=== PATIENT | male | born 1980 | race Caucasian/White ===

== ENCOUNTER 2021-12-17 15:42 | Outpatient (REF) | payer MEDICAID, SELFPAY ==
[2021-12-17 14:50] LABS: Abs Immature Grans 0.05 10^3/uL (0.0-0.06); Absolute Basophil Count 0.03 10^3/uL (0.0-0.2); Absolute Eosinophil Count 0.09 10^3/uL (0.0-0.7); Absolute Lymphocyte Count 2.26 10^3/uL (1.2-3.4); Absolute Monocyte Count 0.62 10^3/uL (0.1-0.8); Absolute Neutrophil Count 3.94 10^3/uL (1.2-6.7); Basophils % 0.4; Eosinophils % 1.3; HCT 45.3 % (40.0-50.0); HGB 15.2 g/dL (13.5-17.5); Immature Grans % 0.7; Lymphocytes % 32.3; MCH 31.8 pg (27.0-33.0); MCHC 33.6 % (32.0-36.0); MCV 94.8 fL (80-95); MPV 9.8 fL (8.0-11.0); Monocytes % 8.9; Neutrophils % 56.4; Nucleated RBC 0 %; Platelet Count 261 10^3/uL (130-400); RBC 4.78 10^6/uL (4.36-5.78); RDW 12.9 % (11.8-14.1); RDW-SD 45.7 fL; WBC 6.99 10^3/uL (4.4-10.8)
[2021-12-17 14:59] LABS: ALT 29 U/L (16-63); AST 19 U/L (15-37); Albumin 4.3 g/dL (3.4-5.0); Alkaline Phosphatase 102 U/L (46-116); Amylase 97 U/L (25-115); BUN 25 mg/dL (7-18); Bilirubin, Total 0.3 mg/dL (0.2-1.0); CREATININE 0.7 mg/dL (0.70-1.30); Calcium 9.2 mg/dL (8.5-10.1); Chloride 102 mmol/L (98-107); Glucose 104 mg/dL (74-106); Lipase 53 U/L (73-393); Potassium 4.6 mmol/L (3.5-5.1); Sodium 138 mmol/L (136-145); Total Protein 7.6 g/dL (6.4-8.2)
[2021-12-17 16:09] LABS: Bilirubin Negative (Negative); Blood Negative (Negative); Clarity Clear (Clear); Glucose Negative (Negative); Ketones Negative (Negative); Leukocyte Esterase Negative (Negative); Nitrite Negative (Negative); Specific Gravity >= 1.030 (1.005-1.025); Urobilinogen 0.2 EU/dL (Up TO 0.2); pH 5.5 (5-8)
== END 2021-12-17 15:43 | disposition home or self-care (01) ==
LOC: NCHCN 15:42
PROVIDERS: Visit Provider Nurse Practitioner Family
DX: R10.32 Left lower quadrant pain (principal); R82.998 Other abnormal findings in urine
CPT/HCPCS: 80053; 83690; 81003; 82150; 85025

== ENCOUNTER 2021-12-17 16:08 | Outpatient (CLI) | payer MEDICAID, SELFPAY ==
--- NOTE | 2021-12-17 | DI.CT_ITS ---
Exam(s) CT ABDOMEN PELVIS W EXAM: CT ABDOMEN PELVIS W CLINICAL HISTORY: LT FLANK PAIN, R10.9, ABD PAIN LT LOWER QUAD, R10.32. TECHNIQUE: Imaging Protocol: Axial computed tomography images with coronal and sagittal reformatted images were created and reviewed CONTRAST MATERIAL: Intravenous: Omnipaque 99cc Oral: Yes COMPARISON: No exams were available for comparison FINDINGS: VISUALIZED LUNG BASES: No nodules nor pleural effusions evident. ABDOMEN: There is no ascites. LIVER: There are no focal hepatic lesions evident . GALLBLADDER/BILIARY: No obvious gallbladder pathology. CBD is not dilated. PANCREAS: No evidence of pancreatic mass nor dilatation of the pancreatic duct. SPLEEN: Spleen is not enlarged. No obvious intrasplenic lesions. Splenic and portal veins are paten t. ADRENALS: There are no significant adrenal masses. KIDNEYS:There is a small cyst in the superior pole the right kidney measuring 8 x 7 millimeters. No other significant focal findings in the right kidney. There is a benign 4 millimeter cyst in the inf erior pole the left kidney. No other focal findings in the left kidney. No hydronephrosis. There a re extrarenal pelves bilaterally. There is no evidence of calculi at the ureterovesical junctions-di stal ureters nor within the urinary bladder. Bladder wall appears uniformly thickened (4 millimeters ). No calculi seen within the bladder.. ABDOMINAL AORTA: Abdominal aorta is not enlarged. LYMPH NODES:There is no retroperitoneal nor paraaortic adenopathy. ABDOMINAL WALL: No evidence of significant anterior abdominal wall nor inguinal hernia. GI: There is no evidence of bowel obstruction, free air, nor abscess. PELVIS: GI: No evidence of appendicitis.Somewhat redundant sigmoid but without evidence of diverticulitis. LYMPH NODES: There is no intrapelvic nor inguinal adenopathy. REPRODUCTIVE: Prostate size upper normal. URINARY BLADDER: Thickened wall OSSEOUS: No significant osseous lesions. IMPRESSION: 1. There are tiny cysts in both kidneys. No solid renal masses. No calculi. Extrarenal pelves are noted bilaterally but no true hydronephrosis. No calculi in the urinary bladder. 2. Bladder wall appears to be uniformly thickened to measurement of 4 millimeters, possibly related t o chronic cystitis. There are no bladder diverticuli. No calculus seen in the urinary bladder. 3. Redundant sigmoid colon. No evidence of diverticulitis. 4. No evidence of appendicitis. RADIATION DOSE DELIVERED: 927.95mGy.cm Total DLP DATA REPOSITORY: All CT scans at this facility are submitted to the National Radiology Data Registry (NRDR) Dose Index Registry (DIR) with the [employer] (ACR). RADIATION OPTIMIZATION: All CT scans at this facility use at least one of these dose optimization te chniques: automated exposure control; mA and/or kV adjustment per patient size (includes targeted exa ms where dose is matched to clinical indication); or iterative reconstruction.
[2021-12-17] MEDS: Breeza Beverage 473 ML BTL 946 ML PO (14:37)
[2021-12-17] MEDS: Normal Saline Flush 10 ML SYR IVP (14:38)
[2021-12-17] MEDS: Omnipaque 350 MG/ML 100 ML BTL IJ (14:40)
== END 2021-12-17 16:28 ==
PROVIDERS: Visit Provider Nurse Practitioner Family
DX: R10.32 Left lower quadrant pain (principal); N28.1 Cyst of kidney, acquired; N32.89 Other specified disorders of bladder
CPT/HCPCS: 74177; J3490

== ENCOUNTER 2021-12-31 07:04 | Emergency (ER) | payer MEDICAID, SELFPAY ==
[2021-12-31] VITALS (11 sets, daily range): BP systolic 111–146; BP diastolic 66–89; PULSE 78–95; RESP 12–17; TEMP 36.6; O2SAT 98–100
--- NOTE | 2021-12-31 07:00 | RT.EKG_ITS ---
APPROVED REPORT Exam: Resting ECG Reason for Exam: chest pain Patient Location: E HR:84 bpm ECG Measurements Heart Rate 84 AXIS WA 178 P 18 QRSd 97 QRS 139 QT 372 T 32 QTc 441 Conclusion Sinus rhythm...normal P axis, V-rate 60- 99 ST elev, probable normal early repol pattern...ST elevation, age<55l. Sinus. Likely benign early repolarization. No STEMI. I have reviewed and interpreted ECG and agree with software generated interpretation.
--- NOTE | 2021-12-31 07:04 | ED.GENADUL_ITS ---
Discharge Plan Disposition Patient Disposition: STILL A PATIENT Condition: Stable Discharge Details Clinical Impression: Epigastric abdominal pain, Chest pain Primary Care Provider: Unknown,Unknown ED Provider: Mattie rOourke Home Meds and New Rx's Prescriptions: No Action diphenhydramine HCl [Benadryl] 25 mg Capsule 50 mg PO QHS [id number] Medical Decision Making 0720 -- 41-year-old male with a history of daily alcohol abuse presents from home for substernal chest pain. Records note the patient was seen at [facility] recently for abdominal pain and referred for outpatient CT abdomen and pelvis which was negative for acute findings. He states this lower abdominal pain has since resolved. Assessment of patient at bedside notes that the pain today appears in the epigastric region. EKG notes a rate of 84, sinus with what appears to be likely benign early repolarization in V2 and V3. No STEMI. He is tender to palpation in the epigastrium. He has no tenderness palpation to his chest. There appears to be a spasm-like quality to his pain as he is moaning and yelling intermittently in the room. Suspect gastritis vs GERD vs PUD, also consider esophageal spasm, cholecystitis, biliary colic, pancreatitis. Denies any tearing or ripping sensation so dissection appears unlikely. There is no pleuritic component does not appear consistent with PE. There is no report of vomiting or his appears on the will obtain screening labs, portable chest x-ray and give IV Pepcid, IV Zofran, GI cocktail and Carafate and reassess. 0800 -- case endorsed to Dr. Trevino to follow up on labs and final disposition. Medical Records Medical records reviewed: Yes I reviewed the patient's medical records. Medical records narrative: 12/17/21 -- CT abdomen/pelvis w/ IV contrast: IMPRESSION: 1. There are tiny cysts in both kidneys.? No solid renal masses.? No calculi.? Extrarenal pelves are noted bilaterally but no true hydronephrosis.? No calculi in the urinary bladder. 2. Bladder wall appears to be uniformly thickened to measurement of 4 millimeters, possibly related to chronic cystitis.? There are no bladder diverticuli.? No calculus seen in the urinary bladder. 3. Redundant sigmoid colon.? No evidence of diverticulitis. 4. No evidence of appendicitis. ECG Data Attestation: I personally reviewed and interpreted this ECG (s) as follows: Interpretation: Rate of 84, sinus, benign early epolarization in V2 and V3. No STEMI. HPI General Mode of arrival: EMS . Date/Time Provider Initiated Documentation: 12/31/21 07:39 . Limitations to Documentation: no limitations . Information obtained by: patient . HPI Narrative: Patient is a 41-year-old tobacco smoker male with a history of daily alcohol a buse presents from home for substernal chest pain. EMS reports that patient was seen recently for abdominal pain but patient reported that the pain has now migrated from his abdomen up to his chest. He was given 324 of aspirin and 0.4mg SL nitro. Patient states he has had chest pain since last night. He states the pain is worse with movement but also at random at rest. Upon further questioning, it appears his pain is mainly in his epigastrium. He drank a half bottle of wine this morning. He states he usually drinks 2 L of wine daily which she has been doing for several years. He occasionally smokes marijuana but denies any other drug use. He states he was seen at [facility] earlier this month for lower abdominal pain but was told his labs and imaging were reassuring and states his lower abdominal pain is since resolved. Related Data Home Medications Medication Instructions Recorded Confirmed diphenhydramine HCl 25 mg capsule 50 mg PO QHS PRN 12/31/21 12/31/21 (Benadryl) Allergies Allergy/AdvReac Type Severity Reaction Status Date / Time No Known Allergies Allergy Unverified 12/31/21 07:10 General Stated Complaint: Chest Pain BONNIE: 3 Review of Systems All systems reviewed & are unremarkable except as noted in HPI and below Constitutional Constitutional: Reports as per HPI, Denies chills and Denies fever(s) Eyes Eyes: Denies blurry vision ENT Ears, Nose, Mouth, and Throat: Denies dizziness, Denies sore throat and Denies throat swelling Cardiovascular Cardiovascular: Reports chest pain and Denies dyspnea Respiratory Respiratory: Denies cough and Denies dyspnea Gastrointestinal Gastrointestinal: Reports abdominal pain, Denies diarrhea and Denies vomiting Genitourinary Genitourinary: Denies hematuria and Denies dysuria Musculoskeletal Musculoskeletal: Denies back pain and Denies numbness Integumentary/Breasts Skin/Breast: Denies lesions and Denies rash Neurologic Neurologic: Denies dizziness, Denies localized weakness and Denies numbness Allergic/Immunologic Allergic/Immunologic: Denies throat swelling PFSH All Active Problems (Updated 12/31/21 @ 07:40 by Mattie Orourke DO) Epigastric abdominal pain (Acute) Chest pain (Acute) Medical History Alcohol abuse Surgical History (Updated 12/31/21 @ 07:40 by Mattie Orourke DO) History of tonsillectomy Social History Smoking/Tobacco Use Status: Current every day Tobacco Type: cigarettes Smoking risk assessment performed?: Yes Alcohol Intake: current Alcohol type: wine Drug use: Never Substance use type: does not use Do you feel safe at home: Yes Do you feel safe in your relationship?: Yes Additional Social history: homeless living at [facility] Exam Const General: cooperative, no acute distress and other (moaning, clutching his abdomen) Orientation: alert, awake and oriented x3 HENMT Head: normal to inspection Mouth: oral mucosae normal Eyes General: appearance normal, both eyes and all related structures Neck Neck: normal visual inspection Resp Effort & Inspection: normal respiratory effort and able to speak in complete sentences Auscultation: clear to auscultation bilaterally Cardio Rate: regular rate Rhythm: regular rhythm GI Inspection: normal to inspection Palpation: soft, not firm, no guarding, not rigid and nontender Skin General skin exam: no rashes or lesions noted Neuro General: patient alert, patient awake and patient oriented x3 Motor: muscle tone normal throughout Extrem General: normal to inspection, full ROM and no edema Psych Appearance: grossly normal Affect: normal affect Sign Out Sign Out Data: Sign Out Comment: Epigastric and chest pain since last night. History of daily alcohol abuse. EKG notes most likely benign early repolarization. Follow-up on labs and imaging and final disposition. Plan will be for delta troponin. Last updated by Mattie Orourke DO at 12/31/21 08:00
--- NOTE | 2021-12-31 07:15 | DI.RAD_ITS ---
Exam(s) XR PORTABLE CHEST AP EXAM: XR PORTABLE CHEST AP CLINICAL HISTORY: substernal chest/epigastric pain, r/o acute diseas TECHNIQUE: 2D digital imaging was performed. COMPARISON: No exams were available for comparison FINDINGS: LUNGS: Clear. No pleural abnormality seen. HEART: Normal. MEDIASTINUM: Normal. BONES: Unremarkable. IMPRESSION: No acute pulmonary findings. DATA REPOSITORY: RADIATION DOSE DELIVERED:
[2021-12-31] MEDS: Ondansetron 4 MG/2 ML VIAL IVP (07:48)
[2021-12-31] MEDS: Famotidine 20 MG/2 ML VIAL IVP (07:48)
[2021-12-31] MEDS: Sucralfate 1 GM TAB PO (07:49)
[2021-12-31] MEDS: Normal Saline 1,000 ML 1000 ML IV (07:53)
[2021-12-31 08:51] LABS: Abs Immature Grans 0.11 10^3/uL (0.0-0.06); Absolute Eosinophil Count 0.03 10^3/uL (0.0-0.7); Absolute Lymphocyte Count 3.33 10^3/uL (1.2-3.4); Absolute Monocyte Count 0.75 10^3/uL (0.1-0.8); Basophils % 0.3; Eosinophils % 0.2; HCT 46.4 % (40.0-50.0); HGB 15.1 g/dL (13.5-17.5); Immature Grans % 0.8; Lymphocytes % 23.2; MCH 31.2 pg (27.0-33.0); MCHC 32.5 % (32.0-36.0); MCV 95.9 fL (80-95); MPV 8.7 fL (8.0-11.0); Monocytes % 5.2; Neutrophils % 70.3; Nucleated RBC 0 %; Platelet Count 329 10^3/uL (130-400); RBC 4.84 10^6/uL (4.36-5.78); RDW 13.4 % (11.8-14.1); RDW-SD 47.6 fL; WBC 14.34 10^3/uL (4.4-10.8)
[2021-12-31 08:54] LABS: Absolute Basophil Count 0.04 10^3/uL (0.0-0.2); Absolute Neutrophil Count 10.08 10^3/uL (1.2-6.7)
[2021-12-31 09:08] LABS: ALT 35 U/L (16-63); AST 28 U/L (15-37); Albumin 4.4 g/dL (3.4-5.0); Alkaline Phosphatase 63 U/L (46-116); BUN 14 mg/dL (7-18); Bilirubin, Total 0.3 mg/dL (0.2-1.0); CREATININE 0.7 mg/dL (0.70-1.30); Calcium 8.8 mg/dL (8.5-10.1); Chloride 105 mmol/L (98-107); Glucose 92 mg/dL (74-106); Lipase 35 U/L (73-393); Magnesium 2.3 mg/dL (1.8-2.4); Sodium 142 mmol/L (136-145); Troponin I < 50 ng/L (<or=60)
--- NOTE | 2021-12-31 10:54 | W.ED.GENAD ---
Discharge Plan Disposition Patient Disposition: HOME Condition: Improving Discharge Details Clinical Impression: Epigastric abdominal pain, Chest pain Primary Care Provider: Unknown,Unknown ED Provider: Ba Rodríguez Home Meds and New Rx's Prescriptions: No Action diphenhydramine HCl [Benadryl] 25 mg Capsule 50 mg PO QHS PRN0RF Discharge Instructions Instructions: Gastritis (ED) Additional Instructions: Please follow-up with primary care as scheduled. Return to the emergency department for any worsening symptomatology specifically worsening chest pain abdominal pain nausea vomiting or signs of withdrawal. Medical Decision Making 41-year-old male presents with recurrent epigastric and chest discomfort that began last night into this morning. No respiratory stress no cough afebrile nontoxic. No peripheral edema. Abdomen soft nontender nondistended. Consider gastritis versus GERD versus pancreatitis given history of alcohol use versus less likely cholecystitis appendicitis or serious intra-abdominal infection or obstruction. Screening labs to troponin EKG GI cocktail close reassessment. Patient already feeling better after meds and rest, no chest pain currently for troponin negative. Awaiting second set of blood work. Likely follow-up with primary care Resting comfortably labs unremarkable feeling better after fluids and meds. HPI General Date/Time Provider Initiated Documentation: 12/31/21 07:39. HPI Narrative: 41-year-old male history of epigastric and chest pain presents with epigastric discomfort and chest discomfort that started last night into this evening, denies trouble breathing cough fevers chills nausea vomiting. Related Data Home Medications Medication Instructions Recorded Confirmed diphenhydramine HCl 25 mg capsule 50 mg PO QHS PRN 12/31/21 12/31/21 (Benadryl) Allergies Allergy/AdvReac Type Severity Reaction Status Date / Time No Known Allergies Allergy Unverified 12/31/21 07:10 General Stated Complaint: Chest Pain BONNIE: 3 Review of Systems Narrative: Review of Systems Constitutional: negative Eyes: negative ENT: negative Cardiovascular: Chest pain Respiratory: negative Gastrointestinal: Abdominal pain : negative Musculoskeletal: negative Skin: negative Neurologic: negative Psych: negative PFSH All Active Problems (Updated 12/31/21 @ 07:40 by Mattie Orourke DO) Epigastric abdominal pain (Acute) Chest pain (Acute) Medical History Alcohol abuse Surgical History (Updated 12/31/21 @ 07:40 by Mattie Orourke DO) History of tonsillectomy Social History Smoking/Tobacco Use Status: Current every day Tobacco Type: cigarettes Smoking risk assessment performed?: Yes Alcohol Intake: current Alcohol type: wine Drug use: Never Substance use type: does not use Do you feel safe at home: Yes Do you feel safe in your relationship?: Yes Additional Social history: homeless living at [facility] Exam Narrative Exam Narrative: Physical Examination General: alert, awake, cooperative, resting comfortably, no acute distress HEENT: normocephalic, atraumatic; PERRL, EOM intact, conjunctiva normal; no nasal discharge; moist mucous membranes, oral and pharyngeal mucosa normal, tolerating secretions Neck: supple, trachea midline; full ROM Chest: normal to inspection Respiratory: normal respiratory effort, speaking in full sentences, clear to auscultation, no wheezing, rales or rhonchi Cardiac: regular rate, regular rhythm, S1S2 intact, no murmurs rubs or gallops GI: abdomen soft, non-tender, non-distended; no palpable mass or hepatosplenomegaly Skin: no lesions, rashes or trauma appreciated Neuro: AAOx3, normal speech, moving all extremities Extremities: No peripheral edema Psych: Appropriate mood and affect Course Vital Signs Vital signs: Vital Signs Pulse 95 H 12/31/21 07:06 Respiratory Rate 16 12/31/21 07:06 Blood Pressure 119/75 12/31/21 07:06 Pulse Oximetry 99 12/31/21 07:06 Pulse 90 12/31/21 09:30 Pulse 95 H 12/31/21 09:30 Respiratory Rate 14 12/31/21 09:30 Respiratory Effort 12/31/21 07:56 Respiratory Depth Normal 12/31/21 07:56 Blood Pressure 124/68 12/31/21 09:30 Blood Pressure Mean 78 12/31/21 09:30 Blood Pressure Position Sitting 12/31/21 07:06 Pulse Oximetry 98 12/31/21 08:45 Oxygen Delivery Method Room Air 12/31/21 07:06 Oxygen Flow Rate 0 12/31/21 07:06 Lab/Test Results Lab/Test Results: Laboratory Tests Range/Units 12/31/21 12/31/21 08:38 08:38 WBC (4.4-10.8) 10^3/uL 14.34 H RBC (4.36-5.78) 10^6/uL 4.84 Hgb (13.5-17.5) g/dL 15.1 Hct (40.0-50.0) % 46.4 MCV (80-95) fL 95.9 H MCH (27.0-33.0) pg 31.2 MCHC (32.0-36.0) % 32.5 RDW (11.8-14.1) % 13.4 Plt Count (130-400) 10^3/uL 329 MPV (8.0-11.0) fL 8.7 Immature Gran % 0.8 Neutrophils % 70.3 Lymphocytes % 23.2 Monocytes % 5.2 Eosinophils % 0.2 Basophils % 0.3 Nucleated RBC % % 0 Absolute Neutrophils (1.2-6.7) 10^3/uL 10.08 H Absolute Lymphocytes (1.2-3.4) 10^3/uL 3.33 Absolute Monocytes (0.1-0.8) 10^3/uL 0.75 Absolute Eosinophils (0.0-0.7) 10^3/uL 0.03 Absolute Basophils (0.0-0.2) 10^3/uL 0.04 Sodium (136-145) mmol/L 142 Potassium (3.5-5.1) mmol/L 4.0 Chloride (98-107) mmol/L 105 Carbon Dioxide (21.0-32.0) mmol/L 25.0 Anion Gap (3-11) mmol/L 12.0 H BUN (7-18) mg/dL 14 Creatinine (0.70-1.30) mg/dL 0.7 Estimated GFR/1.73 m2 (mL/min/1.73m2) >= 60.00 Glucose (74-106) mg/dL 92 Calcium (8.5-10.1) mg/dL 8.8 Magnesium (1.8-2.4) mg/dL 2.3 Total Bilirubin (0.2-1.0) mg/dL 0.3 AST (15-37) U/L 28 ALT (16-63) U/L 35 Alkaline Phosphatase (46-116) U/L 63 Troponin I (<or=60) ng/L < 50 Total Protein (6.4-8.2) g/dL 8.0 Albumin (3.4-5.0) g/dL 4.4 Lipase (73-393) U/L 35 Sign Out Sign Out Data: Sign Out Comment: Epigastric and chest pain since last night. History of daily alcohol abuse. EKG notes most likely benign early repolarization. Follow-up on labs and imaging and final disposition. Plan will be for delta troponin. Last updated by Mattie Orourke DO at 12/31/21 08:00
[2021-12-31 11:04] LABS: Troponin I < 50 ng/L (<or=60)
--- NOTE | 2021-12-31 11:15 | NUR.NOTE ---
Nursing Note: Referral given to Care Management for gastritis, alcoholism, establish care/needs PCP within 1 week. Kasie Gustafson
== END 2021-12-31 11:40 | disposition home or self-care (01) ==
PROVIDERS: Physician Assistant; Emergency Provider Emergency Medicine; PCP Nurse Practitioner Family
DX: R10.13 Epigastric pain (principal); R07.9 Chest pain, unspecified; F17.210 Nicotine dependence, cigarettes, uncomplicated; F10.10 Alcohol abuse, uncomplicated
CPT/HCPCS: 80053; 83690; 93005; 96361; 96374; 96375; 99284; 71045; 83735; 84484; 85025; 93010; J2405

== ENCOUNTER → 2022-01-07 01:49 | Outpatient (CLI) | payer MEDICAID, SELFPAY ==
--- NOTE | 2022-01-07 12:30 | DI.RAD_ITS ---
Exam(s) XR RIBS ONLY RT EXAM: XR RIBS ONLY RT CLINICAL HISTORY: RUQ ABD PAIN, R10.11, TENDER ANTERIOR CHEST WALL NEAR RUQ, BRUISE TECHNIQUE: 2D digital imaging was performed.Four images were obtained. COMPARISON: CR XR PORTABLE CHEST AP from 12/31/2021 FINDINGS: MEDIASTINUM: Normal. HEART: Normal. PULMONARY VASCULATURE: Normal. LUNGS: Clear. PLEURAL SPACE: No pleural effusion or pneumothorax. BONE:Normal. RIGHT RIBS: Normal. OTHER FINDINGS:Normal. IMPRESSION: 1. No acute pulmonary findings. 2. Unremarkable right ribs. DATA REPOSITORY: RADIATION DOSE DELIVERED:
--- NOTE | 2022-01-16 10:59 | W.ED.GENAD ---
Discharge Plan Discharge Details Attending Provider: Tripp Rodriguez Primary Care Provider: RUFUS CHOUDHARY Home Meds and New Rx's Prescriptions: No Action diphenhydramine HCl [Benadryl] 25 mg Capsule 50 mg PO QHS [id number] Medical Decision Making This entire ED visit note was copied and pasted from the original note which is locked in draft mode. ED visit date: 12/31/21 Discharge Plan Disposition Patient Disposition: STILL A PATIENT Condition: Stable Discharge Details Clinical Impression: ?Epigastric abdominal pain, Chest pain Primary Care Provider: Unknown,Unknown ED Provider: Mattie Orourke Home Meds and New Rx's Prescriptions: No Action ? diphenhydramine HCl [Benadryl] 25 mg Capsule ?? 50 mg PO QHS [id number] Medical Decision Making 07 -- 41-year-old male with a history of daily alcohol abuse presents from home for substernal chest pain.? Records note the patient was seen at [facility] recently for abdominal pain and referred for outpatient CT abdomen and pelvis which was negative for acute findings.? He states this lower abdominal pain has since resolved.? Assessment of patient at bedside notes that the pain today appears in the epigastric region. EKG notes a rate of 84, sinus with what appears to be likely benign early repolarization in V2 and V3.? No STEMI. He is tender to palpation in the epigastrium.? He has no tenderness palpation to his chest.? There appears to be a spasm-like quality to his pain as he is moaning and yelling intermittently in the room.? Suspect gastritis vs GERD vs PUD, also consider esophageal spasm, cholecystitis, biliary colic, pancreatitis.? Denies any tearing or ripping sensation so dissection appears unlikely.? There is no pleuritic component does not appear consistent with PE.? There is no report of vomiting or his appears on the will obtain screening labs, portable chest x-ray and give IV Pepcid, IV Zofran, GI cocktail and Carafate and reassess. 0800 -- case endorsed to Dr. Trevino to follow up on labs and final disposition. Medical Records Medical records reviewed: Yes I reviewed the patient's medical records. Medical records narrative: 12/17/21 -- CT abdomen/pelvis w/ IV contrast: IMPRESSION: 1. There are tiny cysts in both kidneys.? No solid renal masses.? No calculi.? Extrarenal pelves are noted bilaterally but no true hydronephrosis.? No calculi in the urinary bladder. 2. Bladder wall appears to be uniformly thickened to measurement of 4 millimeters, possibly related to chronic cystitis.? There are no bladder diverticuli.? No calculus seen in the urinary bladder. 3. Redundant sigmoid colon.? No evidence of diverticulitis. 4. No evidence of appendicitis. ECG Data Attestation: I personally reviewed and interpreted this ECG (s) as follows: Interpretation: Rate of 84, sinus, benign early epolarization in V2 and V3.? No STEMI. HPI General? Mode of arrival: EMS.? Date/Time Provider Initiated Documentation: 12/31/21 07:39.? Limitations to Documentation: no limitations. ? Information obtained by: patient. HPI Narrative: Patient is a 41-year-old tobacco smoker male with a history of daily alcohol abuse presents from home for substernal chest pain.? EMS reports that patient was seen recently for abdominal pain but patient reported that the pain has now migrated from his abdomen up to his chest.? He was given 324 of aspirin and 0.4mg SL nitro.? Patient states he has had chest pain since last night.? He states the pain is worse with movement but also at random at rest.? Upon further questioning, it appears his pain is mainly in his epigastrium.? He drank a half bottle of wine this morning.? He states he usually drinks 2 L of wine daily which she has been doing for several years.? He occasionally smokes marijuana but denies any other drug use.? He states he was seen at [facility] earlier this month for lower abdominal pain but was told his labs and imaging were reassuring and states his lower abdominal pain is since resolved.?Related Data? Home Medications ?Medication ?Instructions ?Recorded ?Confirmed diphenhydramine HCl 25 mg capsule 50 mg PO QHS PRN 12/31/21 12/31/21 (Benadryl) ? Allergies Allergy/AdvReac Type Severity Reaction Status Date / Time No Known Allergies Allergy ? ? Unverified 12/31/21 07:10 ?General?Stated Complaint: Chest Pain?BONNIE: 3? Review of Systems All systems reviewed & are unremarkable except as noted in HPI and below Constitutional Constitutional: Reports as per HPI, Denies chills and Denies fever(s) Eyes Eyes: Denies blurry vision ENT Ears, Nose, Mouth, and Throat: Denies dizziness, Denies sore throat and Denies throat swelling Cardiovascular Cardiovascular: Reports chest pain and Denies dyspnea Respiratory Respiratory: Denies cough and Denies dyspnea Gastrointestinal Gastrointestinal: Reports abdominal pain, Denies diarrhea and Denies vomiting Genitourinary Genitourinary: Denies hematuria and Denies dysuria Musculoskeletal Musculoskeletal: Denies back pain and Denies numbness Integumentary/Breasts Skin/Breast: Denies lesions and Denies rash Neurologic Neurologic: Denies dizziness, Denies localized weakness and Denies numbness Allergic/Immunologic Allergic/Immunologic: Denies throat swelling PFSH All Active Problems?(Updated 12/31/21 @ 07:40 by Mattie Orourke DO) Epigastric abdominal pain (Acute) Chest pain (Acute) Medical History Alcohol abuse Surgical History?(Updated 12/31/21 @ 07:40 by Mattie Orourke DO) History of tonsillectomy Social History Smoking/Tobacco Use Status:? Current every day Tobacco Type: cigarettes Smoking risk assessment performed?:? Yes Alcohol Intake:? current Alcohol type: wine Drug use:? Never Substance use type:? does not use Do you feel safe at home:? Yes Do you feel safe in your relationship?:? Yes Additional Social history:? homeless living at [facility] Exam Const General: cooperative, no acute distress and other (moaning, clutching his abdomen) Orientation: alert, awake and oriented x3 HENMT Head: normal to inspection Mouth: oral mucosae normal Eyes General: appearance normal, both eyes and all related structures Neck Neck: normal visual inspection Resp Effort & Inspection: normal respiratory effort and able to speak in complete sentences Auscultation: clear to auscultation bilaterally Cardio Rate: regular rate Rhythm: regular rhythm GI Inspection: normal to inspection Palpation: soft, not firm, no guarding, not rigid and nontender Skin General skin exam: no rashes or lesions noted Neuro General: patient alert, patient awake and patient oriented x3 Motor: muscle tone normal throughout Extrem General: normal to inspection, full ROM and no edema Psych Appearance: grossly normal Affect: normal affect Sign Out Sign Out Data: Sign Out Comment: Epigastric and chest pain since last night.? History of daily alcohol abuse.? EKG notes most likely benign early repolarization.? Follow-up on labs and imaging and final disposition.? Plan will be for delta troponin. Last updated by Mattie Orourke DO at 12/31/21 08:00 HPI Related Data Home Medications Medication Instructions Recorded Confirmed diphenhydramine HCl 25 mg capsule 50 mg PO QHS PRN 12/31/21 12/31/21 (Benadryl) Allergies Allergy/AdvReac Type Severity Reaction Status Date / Time No Known Allergies Allergy Unverified 12/31/21 07:10 General BONNIE: 3 PFSH All Active Problems (Updated 12/31/21 @ 07:40 by Mattie Orourke DO) Epigastric abdominal pain (Acute) Chest pain (Acute) Medical History Alcohol abuse Surgical History (Updated 12/31/21 @ 07:40 by Mattie Orourke DO) History of tonsillectomy Social History Smoking/Tobacco Use Status: Current every day Tobacco Type: cigarettes Smoking risk assessment performed?: Yes Alcohol Intake: current Alcohol type: wine Drug use: Never Substance use type: does not use Do you feel safe at home: Yes Do you feel safe in your relationship?: Yes Additional Social history: homeless living at [facility]
== END ==
PROVIDERS: PCP Nurse Practitioner Family; Visit Provider Family Medicine
DX: R07.89 Other chest pain (principal); S20.211A Contusion of right front wall of thorax, initial encounter; R10.11 Right upper quadrant pain
CPT/HCPCS: 71100

== ENCOUNTER 2022-01-20 20:35 | Emergency (ER) | payer MEDICAID, SELFPAY ==
[2022-01-20 20:26] VITALS: BP 138/95; PULSE 104; RESP 18; TEMP 36.4; O2SAT 97
--- NOTE | 2022-01-20 20:44 | ED.GENADUL_ITS ---
Discharge Plan Discharge Details Chief Complaint: ETOHWithdr Primary Care Provider: RUFUS CHOUDHARY ED Provider: Chandni Sommer Home Meds and New Rx's Prescriptions: No Action diphenhydramine HCl [Benadryl] 25 mg Capsule 50 mg PO QHS [id number] Medical Decision Making 41-year-old male who is ambulatory here in department presents with yelling and lower abdominal pain on exam. He has a history of EtOH abuse. When asked patient denies pain no chest pain or shortness of breath denies any trauma. He does answer questions appropriately. He has been recently seen here on December 31 and January 16 for similar. At that time he was complaining of chest and abdominal effort. Cardiac etiology was ruled out at that time. He was noted to have bladder thickening question of chronic cystitis. Past medical history includes alcohol abuse. At this time screening labs ordered including CBC, CMP, alcohol level, Tylenol salicylate, urinalysis and UDS 1 L normal saline GI cocktail and 0.5 mg of lorazepam p.o. Wiill medically clear patient. 2141: Informed by staff mechanical engineer department staff that patient eloped from the department after taking out his IV, he did receive GI cocktail and 0.5 mg lorazepam. Patient was seen ambulatory without assistance upon elopement from the department. CBC has resulted no leukocytosis no significant evidence for infection CMP still pending at this time urinalysis within normal limits. Urine drug screen and alcohol level pending at the time of this dictation. HPI General Mode of arrival: EMS . Date/Time Provider Initiated Documentation: 01/20/22 20:38 . Limitations to Documentation: altered mental status (Intoxicated) . Information obtained by: patient, EMS, RN notes reviewed and old records reviewed . HPI Narrative: 41-year-old male who is ambulatory here in department presents with yelling and lower abdominal pain on exam. He has a history of EtOH abuse. When asked patient denies pain no chest pain or shortness of breath denies any trauma. He does answer questions appropriately. He has been recently seen here on December 31 and January 16 for similar. At that time he was complaining of chest and abdominal effort. Cardiac etiology was ruled out at that time. He was noted to have bladder thickening question of chronic cystitis. Past medical history includes alcohol abuse. Related Data Home Medications Medication Instructions Recorded Confirmed diphenhydramine HCl 25 mg capsule 50 mg PO QHS PRN 12/31/21 12/31/21 (Benadryl) Allergies Allergy/AdvReac Type Severity Reaction Status Date / Time No Known Allergies Allergy Unverified 12/31/21 07:10 General Stated Complaint: ETOHWithdr BONNIE: 3 Review of Systems Narrative: Limited due to intoxication Cardiovascular Cardiovascular: Denies chest pain and Denies dyspnea Respiratory Respiratory: Denies dyspnea PFSH All Active Problems Epigastric abdominal pain (Acute) Chest pain (Acute) Medical History Alcohol abuse Surgical History History of tonsillectomy Social History Smoking/Tobacco Use Status: Current every day Tobacco Type: cigarettes Smoking risk assessment performed?: Yes Alcohol Intake: current Alcohol type: wine Drug use: Occasionally Substance use type: marijuana Details: currently does not have a dealer Do you feel safe at home: Yes Do you feel safe in your relationship?: Yes Additional Social history: homeless living at [facility] Exam Narrative Exam Narrative: General: Disheveled awake and Alert, conversant. Stops moaning when spoken to intermittently. Slurred speech, smells of EtOH. Skin: Warm and Dry HEENT: Head: No palpable deformities, Normocephalic Eyes: Pupils PERRLA, EOM's intact. No periorbital eccymosis or step off Ears: Canal patent. Tympanic membranes are clear . No okeefe's sign, no hemptympanum. Nose/Face: Atraumatic. Facial bones nontender to palpation and stable with manipulation. Mouth/Throat: No intraoral trauma. Teeth and mandible are intact. Neck: No midline tenderness, no step off, no deformity to palpation of C-spine. Trachea midline. Chest: No surface trauma. Nontender without crepitus or deformity. Lungs clear to ausculatation bilaterally. Heart: RRR, no rubs, murmurs or gallop. Abdomen: No abrasions, ecchymosis, or surface trauma. Nondistended. Mild tenderness noted to bilateral lower abdomen. Pelvis: Nontender to palpation and stable to compression. Femoral pulses strong and equal Extremities: no surface trauma. Sensation intact. Peripheral pulses intact and equal. Neuro: ANO x4, GCS 15, cranial nerves II through XII intact. Motor and sensory exam nonfocal. Reflexes are symmetric. Psychiatric: Denies suicidal ideation denies homicidal ideation. Course Vital Signs Vital signs: Vital Signs Temperature 36.4 C L 01/20/22 20:26 Pulse 104 H 01/20/22 20:26 Respiratory Rate 18 01/20/22 20:26 Blood Pressure 138/95 H 01/20/22 20:26 Pulse Oximetry 97 01/20/22 20:26 Temperature 36.4 C L 01/20/22 20:26 Temperature Source Skin 01/20/22 20:26 Pulse 104 H 01/20/22 20:26 Respiratory Rate 18 01/20/22 20:26 Respiratory Effort 01/20/22 20:33 Respiratory Pattern Normal 01/20/22 20:37 Blood Pressure 138/95 H 01/20/22 20:26 Blood Pressure Position Supine 01/20/22 20:26 Pulse Oximetry 97 01/20/22 20:26 Oxygen Delivery Method Room Air 01/20/22 20:26 Oxygen Flow Rate 0 01/20/22 20:26 Pain Level 0 01/20/22 20:26 PAWSS Have you Been Recently Intoxicated or Drunk Within the Last 30 days?: Yes Have you Ever Experienced Previous Episodes of Alcohol Withdrawal?: Yes Have you ever Experienced Withdrawal Seizures?: No Have you ever Experienced Delirium Tremens(DT)s?: No Have you ever undergone Alcohol Rehabilitation Treatment (i.e, inpt ot outpatient treatment programs)?: Yes Have you ever Experienced Blackouts?: No Have you ever Combined Alcohol with other Downers within the last 90 days?: No Have you ever Combined Alcohol with any other Substance of Abuse during the last 90 days?: Yes Positive Blood Alcohol level on Presentation? [PCS.BAL]: Yes Evidence of Increased Autonomic Activity (i.e. HR>120, tremor, sweating, agita tion, nausea)?: Yes Result: 7
[2022-01-20] MEDS: Normal Saline 1,000 ML 125 ML IV (21:11)
[2022-01-20 21:14] LABS: Abs Immature Grans 0.01 10^3/uL (0.0-0.06); Absolute Basophil Count 0.03 10^3/uL (0.0-0.2); Absolute Lymphocyte Count 3.11 10^3/uL (1.2-3.4); Absolute Monocyte Count 0.73 10^3/uL (0.1-0.8); Absolute Neutrophil Count 3.03 10^3/uL (1.2-6.7); Basophils % 0.4; Eosinophils % 1.4; HCT 47.6 % (40.0-50.0); HGB 15.5 g/dL (13.5-17.5); Immature Grans % 0.1; Lymphocytes % 44.4; MCH 30.8 pg (27.0-33.0); MCHC 32.6 % (32.0-36.0); MCV 94.6 fL (80-95); MPV 8.9 fL (8.0-11.0); Monocytes % 10.4; Neutrophils % 43.3; Nucleated RBC 0 %; Platelet Count 246 10^3/uL (130-400); RBC 5.03 10^6/uL (4.36-5.78); RDW 13.6 % (11.8-14.1); RDW-SD 47.8 fL; WBC 7.01 10^3/uL (4.4-10.8)
[2022-01-20 21:30] LABS: Bilirubin Negative (Negative); Blood Negative (Negative); Clarity Clear (Clear); Glucose Negative (Negative); Ketones Negative (Negative); Leukocyte Esterase Negative (Negative); Nitrite Negative (Negative); Specific Gravity <= 1.005 (1.005-1.025); Urobilinogen 0.2 EU/dL (Up TO 0.2); pH 5.5 (5-8)
[2022-01-20 21:38] LABS: ALT 147 U/L (16-63); AST 83 U/L (15-37); Albumin 4.4 g/dL (3.4-5.0); Alkaline Phosphatase 68 U/L (46-116); Anion Gap 16.1 mmol/L (3-11); BUN 11 mg/dL (7-18); Bilirubin, Total 0.3 mg/dL (0.2-1.0); CO2 21.9 mmol/L (21.0-32.0); CREATININE 0.7 mg/dL (0.70-1.30); Calcium 8.7 mg/dL (8.5-10.1); Chloride 106 mmol/L (98-107); Glucose 92 mg/dL (74-106); Potassium 3.7 mmol/L (3.5-5.1); Sodium 144 mmol/L (136-145); Total Protein 7.9 g/dL (6.4-8.2)
[2022-01-20 21:50] LABS: *AMPHETAMINES SCREEN URINE Negative (Negative); *BARBITURATES SCREEN URINE Negative (Negative); *BENZODIAZEPINES SCREEN URINE Negative (Negative); Cannabinoids THC Negative (Negative); Cocaine Screen,Urine Negative (Negative); METHADONE URINE SCREEN Negative (Negative); OPIATES URINE SCREEN Negative (Negative)
[2022-01-20 21:53] LABS: Tricyclic Antidepressants Positive (Negative)
[2022-01-20 21:59] LABS: ETHANOL BLOOD 373.2 mg/dL (<10)
[2022-01-20 22:00] LABS: Acetaminophen < 2 ug/mL (10-30)
== END 2022-01-20 21:33 | disposition other institution (70) ==
PROVIDERS: Emergency Provider Registered Nurse Emergency; PCP Nurse Practitioner Family
DX: Z53.29 Procedure and treatment not carried out because of patient's decision for other reasons (principal); R10.30 Lower abdominal pain, unspecified; F10.129 Alcohol abuse with intoxication, unspecified; Y90.8 Blood alcohol level of 240 mg/100 ml or more
CPT/HCPCS: 36415; 80053; 80307; 99283; 80320; 80329; 81003; 85025

== ENCOUNTER 2022-04-11 18:54 | Outpatient (REF) | payer MEDICAID, SELFPAY ==
[2022-04-11 21:38] LABS: Abs Immature Grans 0.05 10^3/uL (0.0-0.06); Absolute Basophil Count 0.04 10^3/uL (0.0-0.2); Absolute Eosinophil Count 0.02 10^3/uL (0.0-0.7); Absolute Monocyte Count 1.38 10^3/uL (0.1-0.8); Basophils % 0.4; Eosinophils % 0.2; HCT 46.6 % (40.0-50.0); HGB 15.5 g/dL (13.5-17.5); Immature Grans % 0.5; Lymphocytes % 18.5; MCH 30.8 pg (27.0-33.0); MCHC 33.3 % (32.0-36.0); MCV 93 fL (80-95); MPV 9.3 fL (8.0-11.0); Monocytes % 12.8; Neutrophils % 67.6; Platelet Count 313 10^3/uL (130-400); RBC 5.03 10^6/uL (4.36-5.78); RDW 13.8 % (11.8-14.1); RDW-SD 46.8 fL; WBC 10.79 10^3/uL (4.4-10.8)
[2022-04-11 21:48] LABS: ALT 38 U/L (16-63); AST 30 U/L (15-37); Alkaline Phosphatase 57 U/L (46-116); Anion Gap 21.1 mmol/L (3-11); BUN 19 mg/dL (7-18); CO2 19.9 mmol/L (21.0-32.0); CREATININE 0.9 mg/dL (0.70-1.30); Calcium 9.7 mg/dL (8.5-10.1); Chloride 94 mmol/L (98-107); Glucose 101 mg/dL (74-106); Lipase 37 U/L (73-393); Potassium 3.9 mmol/L (3.5-5.1); Sodium 135 mmol/L (136-145); Total Protein 8.2 g/dL (6.4-8.2)
[2022-04-13 13:15] LABS: COVID-19 RT-PCR UVMMC Result Negative (Negative)
== END 2022-04-11 18:55 | disposition home or self-care (01) ==
LOC: LBN 18:54
PROVIDERS: PCP Nurse Practitioner Family; Visit Provider Physician Assistant Medical
DX: R11.10 Vomiting, unspecified (principal); Z20.822 Contact with and (suspected) exposure to COVID-19
CPT/HCPCS: 80053; 83690; U0003; 85025

== ENCOUNTER 2022-06-06 22:35 | Emergency (ER) | payer MEDICAID, SELFPAY ==
[2022-06-06 22:28] VITALS: BP 140/85; PULSE 99; RESP 24; TEMP 36.4; O2SAT 97
--- NOTE | 2022-06-06 22:46 | ED.GENADUL_ITS ---
Discharge Plan Disposition Patient Disposition: HOME Condition: Stable Discharge Details Clinical Impression: Alcohol abuse Primary Care Provider: RUFUS CHOUDHARY ED Provider: Jesus Alberto Aldridge Home Meds and New Rx's Prescriptions: Continued diphenhydramine HCl [Benadryl] 25 mg Capsule 50 mg PO QHS PRN Discharge Instructions Instructions: Abuse of Alcohol (ED) Additional Instructions: your symptoms are likely related to your abuse of alcohol if you are interested in help with your alcohol abuse you can call the recovery center or your primary care provider follow up with your primary care provider within 1-2 weeks Medical Decision Making 42 yo male with hx of alcohol abuse no chronic medical problems comes in with em s from [facility] where he is living comes in with ems because he states he can't stop yelling. He has been drinking throughout the day but states not more than he normally does. He states he normally has a few beers and wine throughout the day and had similar amount today. He has been yelling explitives throughout the day and is not sure why so he came here. He is currently caox4 speaking clearly. no focal motor or sensation deficits. CN ii-xii intact, no signs of trauma, does intermittently yell during exam randomly. Denies si/hi, no evidence of paranoia or hallucinations. I discussed I feel that this is likely related to his alcohol abuse and also behavioral. When I said this he said 'Fuck you you're dressed like a clown. I calmly asked him to try and not use expletives. I offered to have scrum coach speak with him which he declined in a not polite way. He did not want to speak with [facility] and given no si/hi did not feel he required emergency mental health eval. He is clinically sober to make his own decisions and was discharged. He was advised to f/u with his pcp and also offered resources for alcohol abuse which he again in a not polite way using multiple expletives declined. He was advised if he felt he had a medical emergency or felt more ill in any way he could always return to the emergency department Differential Diagnosis Differential Diagnosis: alcohol abuse, personality disorder HPI General Mode of arrival: EMS . Date/Time Provider Initiated Documentation: 06/06/22 22:38 . Limitations to Documentation: no limitations . Information obtained by: patient . History of Present Illness 42 year old M presents to the emergency department with the chief complaint of yelling, described as moderate, Patient started experiencing this day(s) (1) and it has been intermittent. No relieving factors improve symptom(s), No exacerbating factors reported . Patient notes no other symptoms.. Patient did receive the following treatments prior to arrival, none Related Data Home Medications Medication Instructions Recorded Confirmed diphenhydramine HCl 25 mg capsule 50 mg PO QHS PRN 12/31/21 12/31/21 (Benadryl) Allergies Allergy/AdvReac Type Severity Reaction Status Date / Time No Known Allergies Allergy Unverified 12/31/21 07:10 General Stated Complaint: Seizure BONNIE: 3 Review of Systems All systems reviewed & are unremarkable except as noted in HPI and below Constitutional Constitutional: Denies chills and Denies fever(s) ENT Ears, Nose, Mouth, and Throat: Denies change in voice Cardiovascular Cardiovascular: Denies chest pain and Denies dyspnea Respiratory Respiratory: Denies cough and Denies dyspnea Gastrointestinal Gastrointestinal: Denies abdominal pain and Denies vomiting Integumentary/Breasts Skin/Breast: Denies rash Psychiatric Psychiatric: Denies depression PFSH All Active Problems Alcohol abuse (Chronic) Medical History Alcohol abuse Surgical History History of tonsillectomy Social History Smoking/Tobacco Use Status: Current every day Tobacco Type: cigarettes Years smoked: 20 Smoking risk assessment performed?: Yes Alcohol Intake: current Alcohol Intake frequency: 3 or more drinks per day Alcohol type: wine Drug use: Occasionally Substance use type: marijuana Details: currently does not have a dealer Do you feel safe at home: Yes Do you feel safe in your relationship?: Yes Additional Social history: homeless living at [facility] Exam Const General: no acute distress Orientation: alert HENMT Head: normal to inspection Ears: external ears normal General nose exam: external nose normal Mouth: moist mucous membranes Eyes General: appearance normal, both eyes and all related structures Neck Neck: normal visual inspection Resp Effort & Inspection: normal respiratory effort and able to speak in complete sentences Cardio Rate: regular rate Skin General skin exam: no rashes or lesions noted Neuro General: patient alert and patient oriented x3 Extrem General: normal to inspection Psych Thought Content: no delusions, no hallucinations, no homicidality and suicidality Course Vital Signs Vital signs: Vital Signs Temperature 36.4 C L 06/06/22 22:28 Pulse 99 H 06/06/22 22:28 Respiratory Rate 24 06/06/22 22:28 Blood Pressure 140/85 06/06/22 22:28 Pulse Oximetry 97 06/06/22 22:28 Temperature 36.4 C L 06/06/22 22:28 Temperature Source Temporal Artery Scan 06/06/22 22:28 Pulse 99 H 06/06/22 22:28 Respiratory Rate 24 06/06/22 22:28 Respiratory Effort Non-Labored 06/06/22 22:39 Respiratory Depth Normal 06/06/22 22:39 Respiratory Pattern Normal 06/06/22 22:39 Blood Pressure 140/85 06/06/22 22:28 Blood Pressure Position Sitting 06/06/22 22:28 Pulse Oximetry 97 06/06/22 22:28 Oxygen Delivery Method Room Air 06/06/22 22:28 Oxygen Flow Rate 0 06/06/22 22:28 PAWSS Have you Been Recently Intoxicated or Drunk Within the Last 30 days?: No Have you Ever Experienced Previous Episodes of Alcohol Withdrawal?: Yes Have you ever Experienced Withdrawal Seizures?: Yes Have you ever Experienced Delirium Tremens(DT)s?: Yes Have you ever undergone Alcohol Rehabilitation Treatment (i.e, inpt ot outpatient treatment programs)?: Yes Have you ever Experienced Blackouts?: Yes Have you ever Combined Alcohol with other Downers within the last 90 days?: Yes Have you ever Combined Alcohol with any other Substance of Abuse during the last 90 days?: No Evidence of Increased Autonomic Activity (i.e. HR>120, tremor, sweating, agitation, nausea)?: Yes Result: 6
[2022-06-07 01:15] VITALS: BP 140/85; PULSE 99; RESP 24; TEMP 36.4; O2SAT 97
== END 2022-06-06 22:54 | disposition home or self-care (01) ==
LOC: ER 23:08
PROVIDERS: Emergency Provider Emergency Medicine; PCP Nurse Practitioner Family
DX: F10.10 Alcohol abuse, uncomplicated (principal)
CPT/HCPCS: 99283; 99284